=== PATIENT | male | born 1965 | race Caucasian/White ===

== ENCOUNTER 2019-12-05 08:40 | Emergency (ER) | payer BC ==
[~2019-12-05] VITALS: Ht 172.7 cm; Wt 105.7 kg
[2019-12-05] MEDS ORDERED: OMEPRAZOLE20 M1 PO (08:44)
[2019-12-05 10:16] LABS: ABSOLUTE NEUTROPHILS 3.9 thou/uL (1.4-8.2); BASOPHILS 1.1 % (0.0-2.0); HEMATOCRIT 42.5 % (42.0-52.0); HEMOGLOBIN 14.4 gm/dL (14.0-18.0); LYMPHOCYTES 28.7 % (24.0-44.0); MCH 31.7 pg (26.0-34.0); MCV 93.3 fL (80.0-100.0); MONOCYTES 10.3 % (1.0-8.0); PLATELET COUNT 256 thou/uL (150-400); POLYS 47.9 % (36.0-66.0); RBC 4.55 mil/uL (4.50-6.00); RDW 13.1 % (10.5-14.5); WBC 8.1 thou/uL (4.0-11.0)
[2019-12-05 10:20] LABS: ANION GAP 9 mmol/L (7-16); BUN 14 mg/dL (7-18); CALCIUM 8.6 mg/dL (8.5-10.1); CHLORIDE 105 mmol/L (98-107); CO2 25 mmol/L (21-32); CREATININE 0.9 mg/dL (0.7-1.3); GLUCOSE 105 mg/dL (74-106); POTASSIUM 4.1 mmol/L (3.5-5.1); SODIUM 139 mmol/L (136-145)
[2019-12-05 10:31] LABS: ALBUMIN 4.2 g/dL (3.4-5.0); SGOT 35 U/L (15-37); SGPT 51 U/L (30-65); TOTAL BILIRUBIN 0.5 mg/dL (0.2-1.0); TOTAL PROTEIN 7.6 g/dL (6.4-8.2); TROPONIN-I <0.06 ng/mL (<0.06)
[2019-12-05] MEDS ORDERED: PREDNISONE 20 M20 MG PO (11:58)
[2019-12-05] MEDS ORDERED: VENTOLIN HFA 1818 GM INH (11:58)
[2019-12-05 12:26] VITALS: BP 114/58
--- NOTE | 2019-12-05 15:36 | EKG ---
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
== END 2019-12-05 12:27 | disposition home or self-care (01) ==
LOC: ER 08:40
PROVIDERS: Emergency Medicine
DX: J45.909 Unspecified asthma, uncomplicated (principal); K21.9 Gastro-esophageal reflux disease without esophagitis; Z87.891 Personal history of nicotine dependence; Z79.899 Other long term (current) drug therapy; Z88.5 Allergy status to narcotic agent; Z91.09 Other allergy status, other than to drugs and biological substances; Z20.828 Contact with and (suspected) exposure to other viral communicable diseases

== ENCOUNTER → 2020-01-12 | Outpatient (CLI) | payer BC ==
[~2020-01-12] MED LIST: OMEPRAZOLE20 M1 PO; PREDNISONE 20 M20 MG PO; VENTOLIN HFA 1818 GM INH
== END ==
LOC: ULTRA 15:55
PROVIDERS: ATTEND Nurse Practitioner
DX: M25.462 Effusion, left knee (principal); M79.89 Other specified soft tissue disorders